=== PATIENT | male | born 1980 | race American Indian/Alaskan Native ===

== ENCOUNTER 2017-07-02 07:11 | Day surgery (SDC) | payer BC ==
[2017-07-02 07:18] VITALS: BMI 32.2
[2017-07-02] MEDS ORDERED: Sodium Chloride 0.9% 1,000 ML IV STA (07:40)
--- NOTE | 2017-07-02 07:44 | ED PDOC ---
Lower Extremity Pain/Injury Time Seen by Provider: 07/02/17 07:26 Chief Complaint (Nursing): Lower Extremity Problem/Injury Chief Complaint (Provider): Lower Extremity Problem/Injury History Per: Patient History/Exam Limitations: no limitations Current Symptoms Are (Timing): Still Present Additional Complaint(s): Yazan Roth is a 36 year old male that presents to the ED with a torn ligament in his left ankle that he sustained from a dislocation injury on 05/29/17. Patient reports that he was sent here by Dr. Marcelino so that he could be admitted for ligament repair surgery. Patient reports that his ankles are swollen but denies any ankle pain or tenderness, chest pain, shortness of breath , dizziness, nausea, or vomiting. Past Medical History Reviewed: Historical Data, Nursing Documentation, Vital Signs Vital Signs: Last Vital Signs Temp 98.7 F 07/02/17 07:18 Pulse 65 07/02/17 07:18 Resp 20 07/02/17 07:18 BP 141/95 H 07/02/17 07:18 Pulse Ox 98 07/02/17 07:18 - Medical History PMH: No Chronic Diseases - Family History Family History: States: Unknown Family Hx - Social History Current smoker - smoking cessation education provided: No Alcohol: Occasional Drugs: Denies - Home Medications Home Medications: Ambulatory Orders Medication Instructions Recorded No Known Home Med 07/02/17 - Allergies Allergies/Adverse Reactions: Allergies Allergy/AdvReac Type Severity Reaction Status Date / Time No Known Allergies Allergy Verified 07/02/17 07:32 Review of Systems ROS Statement: Except As Marked, All Systems Reviewed And Found Negative Cardiovascular: Negative for: Chest Pain Respiratory: Negative for: Shortness of Breath Musculoskeletal: Positive for: Other (swelling of left ankle, no pain) Neurological: Negative for: Weakness (Sensation in extremities intact), Numbness Physical Exam - Reviewed Nursing Documentation Reviewed: Yes Vital Signs Reviewed: Yes - Physical Exam Appears: Positive for: Non-toxic, No Acute Distress Head Exam: Positive for: ATRAUMATIC, NORMOCEPHALIC Skin: Positive for: Normal Color, Warm Eye Exam: Positive for: Normal appearance, EOMI, PERRL Neck: Positive for: Normal, Supple Cardiovascular/Chest: Positive for: Regular Rate, Rhythm. Negative for: Murmur Respiratory: Positive for: Normal Breath Sounds. Negative for: Wheezing Pulses-Dorsalis Pedis (L): 2+ Pulses-Dorsalis Pedis (R): 2+ Extremity: Positive for: Swelling (Left ankle is inudrated.) Lymphatic: Positive for: Normal Exam. Negative for: Adenopathy Neurologic/Psych: Positive for: Alert, Oriented. Negative for: Motor/Sensory Deficits (Strength in all extremities 5/5) - Laboratory Results Result Diagrams: 07/02/17 08:24 07/02/17 08:24 - ECG O2 Sat by Pulse Oximetry: 98 (RA) Pulse Ox Interpretation: Normal Medical Decision Making Medical Decision Making: Impression: Clearance for Ligament Repair Surgery Plan: * Chest X-Ray * EKG * CBC * BMP * PTT * PT * NPO Diet * NaCl 1000 mLs at 100 mLs/hr * Reevaluation EKG shows normal axis, NSR at 63 BPM. T wave inversion in leads III and F. Scribe Attestation: Documented by Madeline Guerra, acting as a scribe for Angelia Santana MD. Provider Scribe Attestation: All medical record entries made by the Scribe were at my direction and personally dictated by me. I have reviewed the chart and agree that the record accurately reflects my personal performance of the history, physical exam, medical decision making, and the department course for this patient. I have also personally directed, reviewed, and agree with the discharge instructions and disposition. case d/w Dr. Marcelino. Ok to admit to his service. WIL Harris paged for admission. Disposition - Clinical Impression Clinical Impression: Ankle dislocation - Patient ED Disposition Is Patient to be Admitted: Yes Doctor Will See Patient In The: Hospital - Disposition Disposition: Transfer of Care Disposition Time: 09:00 Condition: STABLE Forms: [employer] (Guyanese) - POA Present On Arrival: Falls Or Trauma
[2017-07-02 08:34] LABS: BASO % 0.8 % (0.0-2.0); EOS # 0.1 K/uL (0.0-0.7); EOS % 1.3 % (0.0-4.0); HEMATOCRIT 42.7 % (35.0-51.0); LYMPH # 1.9 K/uL (1.0-4.3); LYMPH % 42.3 % (20.0-40.0); MEAN CELL VOLUME 82.6 fl (80.0-94.0); MEAN CORPUSCULAR HEMOGLOBIN 27.8 pg (27.0-31.0); MEAN CORPUSCULAR HGB CONC 33.7 g/dL (33.0-37.0); MEAN PLATELET VOLUME 7.9 fl (7.2-11.7); MONO # 0.4 K/uL (0.0-0.8); MONO % 8.8 % (0.0-10.0); NEUT # 2.1 K/uL (1.8-7.0); NEUT % 46.8 % (50.0-75.0); NRBC % 0.4 % (0.0-0.0); RED CELL DISTRIBUTION WIDTH 13.5 % (11.5-14.5); WHITE BLOOD COUNT 4.5 K/uL (4.8-10.8)
[2017-07-02 08:36] LABS: BLOOD UREA NITROGEN 31 mg/dl (9-20); CALCIUM 9.7 mg/dL (8.4-10.2); CARBON DIOXIDE 26 mmol/L (22-30); CHLORIDE 105 mmol/L (98-107); GFR AFRICAN-AMERICAN > 60; GLUCOSE,RANDOM 105 mg/dL (75-110); POTASSIUM 3.8 MMOL/L (3.6-5.0); SODIUM 142 mmol/l (132-148)
--- NOTE | 2017-07-02 08:58 | RAD ---
HISTORY: preop COMPARISON: No prior. FINDINGS: LUNGS: No active pulmonary disease. PLEURA: No significant pleural effusion identified, no pneumothorax apparent. CARDIOVASCULAR: Normal. OSSEOUS STRUCTURES: No significant abnormalities. VISUALIZED UPPER ABDOMEN: Normal. OTHER FINDINGS: None. IMPRESSION: No active disease.
--- NOTE | 2017-07-02 09:10 | CP.PCM.HP ---
History of Present Illness - History of Present Illness History of Present Illness: consultation Dr. Marcelino for left ankle pain 36M complains of left ankle pain x approx 1 month. He says he had an ankle dislocation while playing basketball approx 1 month, and has had continued pain and swelling. Denies CP/SOB/dizziness. [place] [facility] patient report reviewed, patient with rx 05/29/2017 #15 percocet. Patient counseled on the risks of addiction, physical or psychological [id number], and overdose associated with opioid drugs and the danger of taking opioid drugs with alcohol and other central nervous system depressants, and cautioned patient on storage and disposal. Present on Admission - Present on Admission Any Indicators Present on Admission: No Review of Systems - Review of Systems All systems: reviewed and no additional remarkable complaints except - Cardiovascular Cardiovascular: As Per HPI - Respiratory Respiratory: As Per HPI - Musculoskeletal Musculoskeletal: As Per HPI Past Patient History - Infectious Disease Hx of Infectious Diseases: None - Past Social History Alcohol: Occasional Drugs: Denies - PSYCHIATRIC Hx Substance Use: No - SURGICAL HISTORY Other/Comment: B/L ACS SURGERY - ANESTHESIA Hx Anesthesia: Yes Hx Anesthesia Reactions: No Meds Allergies/Adverse Reactions: Allergies Allergy/AdvReac Type Severity Reaction Status Date / Time No Known Allergies Allergy Verified 07/02/17 07:32 Physical Exam - Constitutional Appears: Well, No Acute Distress - Respiratory Exam Respiratory Exam: NORMAL BREATHING PATTERN - Cardiovascular Exam Cardiovascular Exam: REGULAR RHYTHM - GI/Abdominal Exam GI & Abdominal Exam: Normal Bowel Sounds - Expanded Lower Extremities Exam Left Knee exam: full ROM, normal inspection Ankle exam: swelling, tenderness (noted generalized swelling to left ankle. +DP/ PT pulses, sensation intact, TTP medial ankle, +ROM toes flex/ext) - Neurological Exam Neurological exam: Alert, Oriented x3 - Psychiatric Exam Psychiatric exam: Normal Affect, Normal Mood - Skin Skin Exam: Dry, Intact, Normal Color, Warm Results - Vital Signs Recent Vital Signs: Last Vital Signs Temp 98.7 F 07/02/17 07:18 Pulse 65 07/02/17 07:18 Resp 20 07/02/17 07:18 BP 141/95 H 07/02/17 07:18 Pulse Ox 98 07/02/17 09:00 - Labs Result Diagrams: 07/02/17 08:24 07/02/17 08:24 Labs: Laboratory Results - last 24 hr 07/02/17 07/02/17 08:24 08:24 WBC 4.5 L RBC 5.16 Hgb 14.4 Hct 42.7 MCV 82.6 MCH 27.8 MCHC 33.7 RDW 13.5 Plt Count 216 MPV 7.9 Neut % (Auto) 46.8 L Lymph % (Auto) 42.3 H [place] % (Auto) 8.8 Eos % (Auto) 1.3 Baso % (Auto) 0.8 Neut # 2.1 Lymph # 1.9 Lajas # 0.4 Eos # 0.1 Baso # 0.0 Sodium 142 Potassium 3.8 Chloride 105 Carbon Dioxide 26 Anion Gap 15 BUN 31 H Creatinine 1.2 Est GFR ( Amer) > 60 Est GFR (Non-Af Amer) > 60 Random Glucose 105 Calcium 9.7 - Impressions Impression: Patient Name / ID : BRYANT JORDAN / [id number] Exam Date : 07/02/2017 08:12:33 ( Approved ) Study Comment : Sex / Age : M / 36Y Creator : Jennifer Yang Dictator : Jennifer Yang Communications Representative : Teacher Adult Education : Jennifer Yang Approver2 : Report Date : 07/02/2017 08:56:39 My Comment : HISTORY: preop COMPARISON: No prior. FINDINGS: LUNGS: No active pulmonary disease. PLEURA: No significant pleural effusion identified, no pneumothorax apparent. CARDIOVASCULAR: Normal. OSSEOUS STRUCTURES: No significant abnormalities. VISUALIZED UPPER ABDOMEN: Normal. OTHER FINDINGS: None. IMPRESSION: No active disease. Assessment & Plan (1) Ankle dislocation Assessment and Plan: 36M with continued Left ankle pain and swelling after ankle dislocation, ligament tear case discussed with Dr. Marcelino for left ankle ligament repair/recon and arthroscopy today NPO labs reviewed, CXR reviewed for OR Status: Acute
[2017-07-02 09:25] LABS: PARTIAL THROMBOPLASTIN TIME 30.5 Seconds (25.6-37.1)
--- NOTE | 2017-07-02 10:43 | RAD ---
PROCEDURE: Left Ankle Radiographs. HISTORY: ankle injury COMPARISON: None FINDINGS: BONES: Os ossific density medial to the medial malleolus, possibly old ligamentous calcification. No evidence of fracture. JOINTS: Normal. No osteoarthritis. Ankle mortise maintained. Talar dome intact SOFT TISSUES: Circumferential soft tissue swelling. OTHER FINDINGS: None. IMPRESSION: No acute fracture.
--- NOTE | 2017-07-02 11:45 | CARD ---
APPROVED REPORT EKG Measurement Heart [id number] <Conclusion> Normal sinus rhythm Nonspecific T wave abnormality Abnormal ECG
[2017-07-02] MEDS ORDERED: ceFAZolin IV 1 gm in Dextrose 2 GM/100 ML BAG IVPB ONE (12:22)
[2017-07-02] MEDS ORDERED: Lidocaine 1% Inj (20ml) ONE (12:22)
[2017-07-02] MEDS ORDERED: Bacitracin Ointment 30 GM TUBE ONE (12:22)
[2017-07-02] MEDS ORDERED: Lactated Ringer's 1,000 ML IV ONE ×3 (12:50→18:00)
[2017-07-02] MEDS ORDERED: Propofol 10 mg/ml Inj (20 ML) ONE (12:50)
[2017-07-02] MEDS ORDERED: Succinylcholine 200 mg/10 ml Inj IV ONE (12:51)
[2017-07-02] MEDS ORDERED: Midazolam 2 MG/2 ML VIAL ONE (12:51)
[2017-07-02] MEDS ORDERED: Rocuronium 10 mg/ml (5 ml) ONE ×2 (12:51→13:52)
[2017-07-02] MEDS ORDERED: Dexamethasone 4 mg/1 ml ONE (13:50)
[2017-07-02] MEDS ORDERED: Neostigmine Methylsulfate 3mg/3ml Syringe IV ONE (13:54)
[2017-07-02] MEDS ORDERED: Neostigmine Methylsulfate 2 MG/2 ML ML IV ONE (13:54)
[2017-07-02] MEDS ORDERED: Sevoflurane - Inhalation Anesthetic Liq (250 ml) ONE (15:36)
[2017-07-02] MEDS ORDERED: Lidocaine 1% Inj (20ml) IM ONE (15:40)
[2017-07-02] MEDS ORDERED: Bupivacaine 0.5% Inj(30mL) IJ ONE (15:40)
[2017-07-02] MEDS ORDERED: HYDROmorphone 0.5 mg/0.5 ml ISec IVP PRN (16:04)
[2017-07-02] MEDS ORDERED: Oxycodone/Acetaminophen 5/325 mg Tab PO PRN (16:04)
[2017-07-02] MEDS ORDERED: Lactated Ringer's 1,000 ML IV SCH (16:15)
--- NOTE | 2017-07-02 16:46 | RAD ---
PROCEDURE: Left Ankle Radiographs. HISTORY: s/p left ankle surger COMPARISON: 07/02/2017 at 20 hours FINDINGS: BONES: Normal. No fractureThe faint ossifications sliver like bordering the medial malleolus noted posterior malleolus on the lateral view is similar in appearance no discrete fracture line noted. A prominent os trigonum or posterior talar process is re- suggested. Plantar arch appear shallow these nonweightbearing portable images. Examination made through casting material. Open Luis Alberto lateral perimalleolar soft tissue swelling and the medial malleolus soft tissue swelling or similar findings. Interval lateral skin dipika are present. Examination is made through casting material. Grossly the talar dome appears intact. Grossly no ankle mortise widening is perceived. . JOINTS: No osteoarthritis. Ankle mortise maintained. Talar dome intact SOFT TISSUES: Normal. OTHER FINDINGS: None. IMPRESSION: Interval postop changes with overlying soft tissue swelling. The sliver like calcifications may represent osseous avulsions and/or old ligamentous calcifications. Correlate clinically. With the surgery performed. No displaced fractures otherwise appreciated.
[2017-07-02] MEDS ORDERED: Labetalol 5 mg/ml Inj 20ML IVP STA ×2 (18:23→18:44)
[2017-07-02] MEDS: Labetalol 5mg/ml (4ml) IVP STA ×2 (19:56→20:10)
--- NOTE | 2017-07-02 20:42 | PCM.SURG1 ---
Surgeon's Initial Post Op Note - Surgeon's Notes Surgeon: Ryland Acoustic Warfare Analyst: 1st assist KAROL Rocha/ 2nd assit Taylor Alcantar Type of Anesthesia: General Endo Anesthesia Administered By: DR Connor Pre-Operative Diagnosis: s/p post traumatic L ankle injury(playing basketball) Operative Findings: Rupture ATFL. chondral fx talar dome. post traumatic synovitis L ankle Post-Operative Diagnosis: gr 3 ATFL rupture. cjondral fx talus. post traumatic synovitis L ankle Operation Performed: Primary repair ATFL rupture (modified Jose L repair). Augmentation Jose L with internal bracke fiber braid technology. surgical arthroscopy- chindroplasty (tibiotalar joint). surg arthroscopy extensive debridement L ankle (tibiotalar joint) Specimen/Specimens Removed: synovium/cartilage Estimated Blood Loss: EBL {In ML}: 20 Blood Products Given: N/A Drains Used: No Drains Post-Op Condition: Good Date of Surgery/Procedure: 07/02/17 Time of Surgery/Procedure: 14:00 (time in room 1250)
[2017-07-02 21:53] VITALS: BP 157/95; PULSE 104; RESP 20; TEMP 99.1; O2SAT 100
--- NOTE | 2017-07-06 15:43 | OP ---
PROCEDURE DATE: 07/02/2017 PREOPERATIVE DIAGNOSIS: Post-traumatic left ankle injury while playing basketball, status post subluxation of the ankle. POSTOPERATIVE DIAGNOSES: 1. Grade 3 tear of the anterior talofibular ligament, complete rupture. 2. Chondral fracture of the talus. 3. Post-traumatic synovitis of the ankle. OPERATIVE FINDINGS: 1. Grade 3 rupture ATFL, left ankle. 2. Chondral fracture, talar dome. 3. Extensive post-traumatic synovitis, left ankle. OPERATIVE PROCEDURE: 1. Primary repair, anterior talofibular ligament rupture, left, with modified Brostrom repair. 2. Augmentation of the Brostrom repair with internal brace fiber braid technology. 3. Surgical arthroscopy, extensive chondroplasty. 4. Surgical arthroscopy, debridement. 5. Arthrotomy and partial synovectomy of the ankle. 6. Application of Vincenzo Orozco compression dressing and posterior splint. SURGEON: Jarvis Marcelino MD. NOVELTIES SALES REPRESENTATIVE: Effie Bojorquez, certified registered nursing assistant project manager. TYPE OF ANESTHESIA: General endotracheal anesthesia. ANESTHESIA BY: Lee Hearn MD. SPECIMENS REMOVED: Synovium and cartilage. ESTIMATED BLOOD LOSS: Approximately 20 mL. No blood products given. POSTOPERATIVE CONDITION: Stable. TIME OF SURGERY: 1400, incision time in the room 1250. OPERATIVE INDICATION: Yazan Roth is a patient well-known to my practice who underwent ACL reconstruction and presents after an ankle subluxation, which was treated in [facility]. In the emergency room, the patient was treated allegedly with a closed reduction and application of splint. The patient presents to the emergency room today with increasing pain. The documentation of the MRI, which had been accomplished after the patient was in [facility] was reviewed. The patient was admitted as an emergency and taken to surgery. Pros, cons, risks, and benefits of surgical approach were discussed. The possibility of mechanical failure, stiffness, nerve injury, infection, thromboembolic disease, secondary or tertiary surgery was discussed. 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 He is aware of the options to just put this in a cast and let it heal on its own, which would end up with a stiff and minimally functional athletic ankle versus open repair of the ligament with augmentation and surgical arthroscopy of the ankle. Again, the possibility of stiffness, mechanical failure, infection, thromboembolic disease secondary or tertiary surgery is discussed. The patient can no longer withstand the discomfort and presented to the emergency room as an emergency and wished the surgery to be accomplished. DESCRIPTION OF PROCEDURE: After having obtained informed consent in the above fashion; after having identified the side, site, and procedure and a critical pause/time-out; after the satisfactory induction of the anesthetic by Dr. Hearn, the patient identified as Yazan Small in the supine position with all bony prominences well padded. The left lower extremity was prepped and free draped in the usual fashion for lower extremity surgery. The tourniquet had been applied, but was not yet inflated. After exsanguinating the limb using a 6-inch Esmarch bandage, tourniquet which had been applied was inflated to 350 mmHg. Under the surgeon's direction, the fluoroscope was positioned, video images were generated, therapeutic decisions were made therefrom. An incision was described laterally extending from the point of the cuboid superficial to the fibula in a modified type of incision. The skin incision was carried down through the skin and subcutaneous tissue. Hemostasis was controlled with electrocautery. To avoid damage to the skin because of the time elapsed since the traumatic injury and the possible compromise of the skin from the traumatic injury, stay sutures were applied. At this point in time, the fibula was identified. There was found to be no fibular fracture. There was found to be a complete rupture of the anterior talofibular ligament. At this point in time, a tibiotalar arthrotomy was accomplished. An incision was employed at the inferior aspect of the fibula including the soft tissues and the anterior talofibular ligament. This having been accomplished, the arthrotomy was continued down through the skin, subcutaneous tissue. Ankle arthrotomy was completed. A partial synovectomy was accomplished under direct vision. The talar dome was identified and there was found to be evidence of chondral damage from the basketball injury. This having been accomplished, using the SwiveLock technology, attention was turned to the talus at a point where the guidewire was placed parallel to the sole of foot in 30 degrees to the coronal axis of the foot. Guidewire was placed. Reaming was accomplished and tapping was accomplished. The appropriate-sized SwiveLock anchor with the fiber blade is placed and imbedded. Verification of position was offered on image intensification views. This having been accomplished, 2 interrupted anchors with FiberWire were introduced at the inferior aspect of the fibula at approximately 18 mm above the fibula, bisecting this is the area of introduction of a secondary K-wire for introduction of the SwiveLock technology for the internal brace augmentation of the repair. At this point time with the ankle in dorsiflexion and eversion, the 2 suture anchors, which have been placed, were used to repair the anterior talofibular ligament from the point of the inferior aspect of the fibula and a point anteriorly and were between 14-16 mm above. This having been accomplished, the anterior talofibular ligament and surrounding tissue was primarily repaired in the fashion described by Kylah. This having been accomplished, the reaming was accomplished followed by tapping and the appropriate-sized SwiveLock was employed. At this point in time, the fiber braid is introduced into the aperture prior to the introduction of the nonabsorbable screw. Nonabsorbable screw was placed with the ankle again in dorsiflexion, eversion to maximize fiber brace augmentation of the Brostrom repair. This having been accomplished from an anteromedial portal, using #18-gauge spinal needle followed by #11 blade, the joint was entered with the arthroscope. Please refer to the video photographs. There was found to be evidence of chondral damage. The arthroscope was transferred anterolaterally and using the arthroscopic shaver, chondroplasty was accomplished arthroscopically using a combination of 3.5 mm Ramer shaver and the [employer] suction punch. Chondroplasty having been accomplished, extensive synovectomy was accomplished using the shaver as well. The wound was thoroughly irrigated. Closure of the arthrotomy was accomplished with interrupted FiberWire laterally, followed by Vicryl and dipika for skin. Portals were closed medially with nylon. Vincenzo Orozco compression dressing and posterior splint were applied. Intra-articular injection was offered. Neurocirculatory status is intact in recovery. It should be noted that the nursing assistant project manager's attendance in the surgery and active participation in the surgery guaranteed the performance of the procedure and the attainment of the operative goal. This would not have been possible if the certified registered nursing assistant project manager was not engaged with the surgery. Jarvis Marcelino MD
--- NOTE | 2017-07-09 09:02 | RAD ---
PROCEDURE: Fluoroscopy greater than 1 hour HISTORY: LEFT ANKLE COMPARISON: None TECHNIQUE: Standard protocol for this study/examination. FINDINGS: Total fluoroscopic time (continuous mode) utilized during the procedure: 24.9 seconds. IMPRESSION: Total exam DLP: (mGy): 1.03
== END 2017-07-02 11:52 | disposition home or self-care (01) ==
LOC: H.ER 07:11 → H.SDS 08:58 → H.ERHOLD 08:58 → UNDOADMIN 08:58 → H.SDS 11:52 → H.ER 11:52 → H.ERHOLD 21:01 → H.MEDSURG1 21:01 → UNDODISIN 22:00
PROVIDERS: ATTEND Orthopaedic Surgery
PROC: 0MQR4ZZ Repair Left Ankle Bursa and Ligament, Percutaneous Endoscopic Approach (ICD-10-PCS; 2017-07-02)
PROC: 0SBD4ZZ Excision of Left Knee Joint, Percutaneous Endoscopic Approach (ICD-10-PCS; principal; 2017-07-02 14:15)
DX: S83.8X2A Sprain of other specified parts of left knee, initial encounter (principal); M65.872 Other synovitis and tenosynovitis, left ankle and foot; S93.05XA Dislocation of left ankle joint, initial encounter; X58.XXXA Exposure to other specified factors, initial encounter; Y93.67 Activity, basketball
CPT/HCPCS: 27700; 29892; 29895; 71010; 73610; 80048; 85025; 85610; 85730; 88304; 93005; 99285; J0171; J0330; J0360; J0690; J1100; J1885; J2250; J2405; J2704; J2710; J2765; J3010; J7030; J7040; J7120